=== PATIENT | male | born 1950 | race Caucasian/White ===

== ENCOUNTER → 2022-10-21 | Day surgery (SDC) | payer MEDICARE, OTHER ==
[~2022-10-21] MED LIST: ALBUTEROL SULFATE HFA 8GM INHALATION AEROSOL INH ONE; ALBUTEROL0.63 MG/3 NEB; ASPIRIN81 MG PO; ATROVENT HFA12.9 GM INH; BROVANA15 MCG/2 M NEB; BUDESONIDE0.5 MG/2 M NEB; CALCIUM CHLORIDE 10% SYRINGE 10 ML IV ONE; COREG12.5 MG PO; DEXAMETHASONE SOD PHOS INJ 4 MG/ML SDV ONE; DIGOXIN125 MCG PO; DIOVAN160 MG PO; ESMOLOL HCL 100MG/10ML 10 MG/ML VIAL ONE; EYE LUBRICANT OPTH OINT 3.5GM TUBE OP ONE; FENTANYL CITRATE/PF 100MCG/2 ML INJ ONE; FUROSEMIDE40 MG PO; LIDOCAINE 2%/ EPINEPHRINE 20ML MDV ONE; LIDOCAINE HCL 2% LOCAL INJ 5 ML SDV VIAL INJ ONE; LIPITOR10 MG PO; MIDAZOLAM HCL 2 MG/2 ML VIAL ONE; NEOSTIGMINE 1 MG/ML 10ML VIAL ONE; ONDANSETRON HCL INJ 2MG/ML 2ML 2 MG/ML VIAL ONE; PANTOPRAZOLE SO40 MG PO; PHENYLEPHRINE HCL 1% 10 MG/ML VIAL ONE; POVIDONE IODINE 0.05% 0.05 % ML PO ONE; PROPOFOL IV EMULSION 10 MG/ML 20 ML VIAL ONE; SEVOFLURANE INHAL SOLN 250 ML PEN BTL ONE; SPIRONOLACTONE25 MG PO; SUCCINYLCHOLINE CHLORIDE 20 MG/ML 10ML VIAL ONE; VIT B12 PO; [UNRECOGNIZED DRUG - OTHER] PO
[2022-10-21 10:45] VITALS: BP 124/63
== END | disposition home or self-care (01) ==
LOC: OR 05:51
PROVIDERS: ATTEND Otolaryngology Otolaryngology/Facial Plastic Surgery
DX: D11.0 Benign neoplasm of parotid gland (principal); I25.810 Atherosclerosis of coronary artery bypass graft(s) without angina pectoris; I13.2 Hypertensive heart and chronic kidney disease with heart failure and with stage 5 chronic kidney disease, or end stage renal disease; N18.6 End stage renal disease; I50.9 Heart failure, unspecified; I48.91 Unspecified atrial fibrillation; J44.9 Chronic obstructive pulmonary disease, unspecified; F17.210 Nicotine dependence, cigarettes, uncomplicated; Z20.822 Contact with and (suspected) exposure to COVID-19; Z79.82 Long term (current) use of aspirin; Z79.899 Other long term (current) drug therapy; Z95.1 Presence of aortocoronary bypass graft; Z95.810 Presence of automatic (implantable) cardiac defibrillator
CPT/HCPCS: 0223U; 36415; 42415; 71046; 88307; 93005; C1713; J0330; J1100; J2001 ×2; J2250; J2370; J2405; J2704; J2710; J3010; 88304